=== PATIENT | male | born 1980 | race Caucasian/White ===

== ENCOUNTER → 2023-05-02 | Day surgery (SDC) | payer OTHER ==
[~2023-05-02] MED LIST: ALLOPURINOL300 MG PO; FAMOTIDINE20 MG PO; IBUPROFEN200 MG PO; LACTATED RINGER'S 1,000 ML ONE; LEVOTHYROXINE112 MCG PO; OMEPRAZOLE40 MG PO
[2023-05-02 12:12] VITALS: TEMP 97.8
[2023-05-02 12:26] VITALS: BP 134/90; PULSE 77; RESP 16; O2SAT 97
== END | disposition home or self-care (01) ==
LOC: OR 10:40
PROVIDERS: ATTEND Internal Medicine Gastroenterology
DX: K21.9 Gastro-esophageal reflux disease without esophagitis (principal); K31.7 Polyp of stomach and duodenum; K29.50 Unspecified chronic gastritis without bleeding; K22.70 Barrett's esophagus without dysplasia; K20.90 Esophagitis, unspecified without bleeding; K44.9 Diaphragmatic hernia without obstruction or gangrene; G47.33 Obstructive sleep apnea (adult) (pediatric); M10.9 Gout, unspecified; I10 Essential (primary) hypertension; E03.9 Hypothyroidism, unspecified; E78.5 Hyperlipidemia, unspecified; G89.29 Other chronic pain; F17.210 Nicotine dependence, cigarettes, uncomplicated; Z71.6 Tobacco abuse counseling; Z88.6 Allergy status to analgesic agent; Z01.810 Encounter for preprocedural cardiovascular examination; Z79.1 Long term (current) use of non-steroidal anti-inflammatories (NSAID); Z79.899 Other long term (current) drug therapy; Z68.42 Body mass index [BMI] 45.0-49.9, adult
CPT/HCPCS: 43239; 88305; 88342; 93005; J7121; 88312